=== PATIENT | male | born 1950 | race Caucasian/White ===

== ENCOUNTER 2021-10-06 07:03 | Day surgery (SDC) | payer MEDICARE ==
[2021-10-02 08:55] VITALS: BMI 33.2
[~2021-10-06 07:03] MED LIST: LACTATED RINGERS 1,000 ML IV SCH
[2021-10-06 07:39] VITALS: TEMP 97.7
[2021-10-06 07:41] LABS: Glucose,Whole Blood 110 mg/dL (70-110)
[2021-10-06] MEDS ORDERED: LIDOCAINE 2% INJ 20 MG/ML (2 ML VIAL) ONE (07:56)
[2021-10-06] MEDS ORDERED: PROPOFOL 10 MG/ML 20 ML VIAL IV ONE (07:56)
--- NOTE | 2021-10-06 07:58 | P.GSHP ---
History of Present Illness H&P Date: 10/06/21 Chief Complaint: GERD, screening 71-year-old male here today for colonoscopy. Patient with no bowel complaints. Patient's previous colonoscopies have been normal. No family history of colon cancer. The patient also with reflux. Requesting EGD as well. Past Medical History Past Medical History: Cancer, Diabetes Mellitus, GERD/Reflux, Hyperlipidemia, Hypertension Additional Past Medical History / Comment(s): HX SKIN CANCER. PRE DIABETIC History of Any Multi-Drug Resistant Organisms: None Reported Additional Past Surgical History / Comment(s): MOHS PROCEDURE X 3 FOR SKIN CANCER. NOSE FX WITH SX Past Anesthesia/Blood Transfusion Reactions: No Reported Reaction Past Psychological History: No Psychological Hx Reported Smoking Status: Never smoker Past Alcohol Use History: Occasional Past Drug Use History: None Reported - Past Family History Father Family Medical History: Cancer Additional Family Medical History / Comment(s): SKIN AND PROSTATE Medications and Allergies Home Medications Medication Instructions Recorded Confirmed Type Aspirin [Adult Low Dose Aspirin EC] 81 mg PO DAILY 08/22/19 10/06/21 History Loratadine [Claritin] 10 mg PO DAILY 08/22/19 10/06/21 History Losartan Potassium [Cozaar] 100 mg PO DAILY 08/22/19 10/06/21 History Omeprazole 20 mg PO DAILY 08/22/19 10/06/21 History Simvastatin [Zocor] 20 mg PO HS 08/22/19 10/06/21 History metFORMIN HCL [Glucophage] 500 mg PO DAILY 10/02/21 10/06/21 History Allergies Allergy/AdvReac Type Severity Reaction Status Date / Time No Known Allergies Allergy Verified 10/06/21 07:28 Surgical - Exam Vital Signs Temp Pulse Resp BP Pulse Ox 97.7 F 62 16 161/70 96 10/06/21 07:35 10/06/21 07:35 10/06/21 07:35 10/06/21 07:35 10/06/21 07:35 Physical exam: General: Well-developed, well-nourished HEENT: Normocephalic, sclerae nonicteric Abdomen: Nontender, nondistended Extremities: No edema Neuro: Alert and oriented Assessment and Plan (1) Colon cancer screening Narrative/Plan: Will proceed with upper and lower endoscopy Current Visit: Yes Status: Acute Code(s): Z12.11 - ENCOUNTER FOR SCREENING FOR MALIGNANT NEOPLASM OF COLON SNOMED Code(s): 609140013
--- NOTE | 2021-10-06 08:25 | P.PCN ---
Date of Procedure: 10/06/21 Procedure(s) Performed: PREOPERATIVE DIAGNOSIS: GERD, screening POSTOPERATIVE DIAGNOSIS: Minimal gastritis, diverticulosis, small transverse colon polyp PROCEDURE: 1. EGD with biopsy 2. Colonoscopy with fulguration transverse colon polyp ANESTHESIA: MAC SURGEON: Wes Del Valle M.D. SPECIMENS: Antrum ENDOSCOPIC PROCEDURE: The patient was on the endoscopy table in the left decubitus position. The Olympus gastroscope was inserted into the oropharynx and passed under direct visualization to the region of the third portion of the duodenum. From that point the scope was slowly withdrawn inspecting all surfaces carefully. There were no neoplastic inflammatory or polypoid lesions throughout the duodenum. The pylorus was widely patent. The stomach was carefully inspected. There was minimal gastritis present. A biopsy of the antrum took place to rule out H. pylori. Retroflexion revealed a normal hiatus. The esophagus was then carefully examined. There were no neoplastic inflammatory or polypoid lesions throughout the visualized esophagus. The patient was kept on the endoscopy table in the left decubitus position. The Olympus colonoscope was inserted into the anus and passed under direct visualization to the base of the cecum. The appendiceal orifice was visualized. From that point the scope was slowly withdrawn inspecting all surfaces carefully. There were no neoplastic inflammatory or polypoid lesions throughout the cecum and ascending colon. In the mid transverse colon there was a small sessile polyp that was attempted to be removed by snare polypectomy technique however the polyp was so flat that it was fulgurated. No residual polypoid tissue was seen. The remainder of the transverse descending sigmoid and rectum appeared normal. There was moderate left-sided diverticulosis as well. Digital rectal examination was normal. The patient was taken to the recovery room in stable condition per anesthesia guidelines. RECOMMENDATIONS: Await biopsy results. Consider repeat colonoscopy 3-5 years given the transverse colon polyp seen on today's study.
[2021-10-06 08:31] VITALS: PULSE 77; RESP 14
[2021-10-06 08:42] VITALS: BP 143/79
== END 2021-10-06 08:50 | disposition home or self-care (01) ==
LOC: ORWHC2ENDO 07:03
PROVIDERS: ATTEND Surgery
DX: Z12.11 Encounter for screening for malignant neoplasm of colon (principal); D12.3 Benign neoplasm of transverse colon; K57.30 Diverticulosis of large intestine without perforation or abscess without bleeding; K29.50 Unspecified chronic gastritis without bleeding; E11.69 Type 2 diabetes mellitus with other specified complication; E78.5 Hyperlipidemia, unspecified; I10 Essential (primary) hypertension; K21.9 Gastro-esophageal reflux disease without esophagitis; Z79.84 Long term (current) use of oral hypoglycemic drugs; Z79.899 Other long term (current) drug therapy; Z79.82 Long term (current) use of aspirin; Z80.42 Family history of malignant neoplasm of prostate; Z80.8 Family history of malignant neoplasm of other organs or systems; Z85.828 Personal history of other malignant neoplasm of skin
CPT/HCPCS: 88305; 45385; 43239; J2704; J2001